=== PATIENT | female | born 1970 ===

== ENCOUNTER 2017-06-08 10:00 | Emergency (ER) | payer SELFPAY ==
[2017-06-08 10:06] VITALS: BP 119/87; PULSE 76; RESP 18; TEMP 98; O2SAT 97
--- NOTE | 2017-06-08 10:28 | C.PDOC ---
History Of Present Illness 47-year-old female, presents to the emergency department with complaints of cough and sore throat for the past few days. She denies fevers, nausea/ vomiting. Secondary complaint is non-traumatic pain to her left foot for the past month. Patient denies numbness/weakness, or any other associated symptoms. No other complaints at this time. Time Seen by Provider: 06/08/17 10:09 Chief Complaint (Nursing): ENT Problem History Per: Patient History/Exam Limitations: no limitations Onset/Duration Of Symptoms: Days Current Symptoms Are (Timing): Still Present Past Medical History Reviewed: Historical Data, Nursing Documentation, Vital Signs Vital Signs: Last Vital Signs Temp 98 F 06/08/17 10:02 Pulse 76 06/08/17 10:02 Resp 18 06/08/17 10:02 BP 119/87 06/08/17 10:02 Pulse Ox 97 06/08/17 11:34 Family History: States: No Known Family Hx - Social History Hx Alcohol Use: No Hx Substance Use: No - Immunization History Hx Tetanus Toxoid Vaccination: No Hx Influenza Vaccination: No Hx Pneumococcal Vaccination: No Review Of Systems Except As Marked, All Systems Reviewed And Found Negative. Constitutional: Negative for: Fever ENT: Positive for: Throat Pain Respiratory: Positive for: Cough. Negative for: Shortness of Breath Gastrointestinal: Negative for: Nausea, Vomiting Musculoskeletal: Positive for: Foot Pain Skin: Negative for: Rash Neurological: Negative for: Weakness, Numbness, Headache, Dizziness Physical Exam - Physical Exam Appears: Non-toxic, No Acute Distress Skin: Warm, Dry, No Rash Head: Atraumatic, Normacephalic Eye(s): bilateral: Normal Inspection, PERRL Nose: Normal Oral Mucosa: Moist Throat: Erythema, No Exudate (no tonsillar swell) Neck: Normal ROM Chest: Symmetrical Cardiovascular: Rhythm Regular, No Murmur Respiratory: Normal Breath Sounds, No Accessory Muscle Use Extremity: Tenderness, No Deformity, Other (L foot: mild tenderness to heel. No erythema, skin changes, warmth) Neurological/Psych: Oriented x3, Normal Speech ED Course And Treatment O2 Sat by Pulse Oximetry: 97 (on RA) Pulse Ox Interpretation: Normal Progress Note: XR L foot ordered and reviewed. Patient treated with PO Naproxen for foot pain and Tessalon for cough/sore throat. Disposition Counseled Patient/Family Regarding: Studies Performed, Diagnosis, Need For Followup, Rx Given - Disposition Referrals: [facility] [Outside] Podiatry Clinic [Outside] Disposition: HOME/ ROUTINE Disposition Time: 11:30 Condition: STABLE Additional Instructions: SEGUIMIENTO CON SKINNER MDICO EN 1-2 [place], Y CON PODIATRA DENTRO DE 1 SEMANA USE MEDICAMENTOS SEGN SEA NECESARIO REGRESE AL BUZZ DE EMERGENCIA SI LOS SNTOMAS EMPEORAN Prescriptions: Benzonatate [Tessalon Perles] 100 mg PO BID PRN #15 sgl PRN Reason: Cough Naproxen 375 mg PO BID PRN #20 tablet PRN Reason: pain Phenol/Glycerin [Chloraseptic Max Callahan] 1 spray MM Q6 PRN #1 spray PRN Reason: THROAT PAIN Instructions: Upper Respiratory Infection (ED), Heel Spur (ED) Forms: [employer] (Togolese) Print Language: SYRIAC - POA Present On Arrival: None - Clinical Impression Clinical Impression: Viral disease, Upper respiratory infection, Heel spur - Scribe Statement The provider has reviewed the documentation as recorded by the Scribe (Tremaine Caruso) All medical record entries made by the Scribe were at my direction and personally dictated by me. I have reviewed the chart and agree that the record accurately reflects my personal performance of the history, physical exam, medical decision making, and the department course for this patient. I have also personally directed, reviewed, and agree with the discharge instructions and disposition.
[2017-06-08] MEDS ORDERED: Naproxen 550 mg Tab PO STA (10:38)
[2017-06-08] MEDS ORDERED: Naproxen 550 mg Tab PO ONE (10:42)
--- NOTE | 2017-06-08 12:51 | RAD ---
PROCEDURE: Left Foot Radiographs. HISTORY: left heel pain COMPARISON: None. FINDINGS: BONES: No acute fracture. Plantar and Achilles Tendon insertion calcaneal spurs. JOINTS: Normal. SOFT TISSUES: Normal. OTHER FINDINGS: None. IMPRESSION: No acute findings related to/accounting for the clinical presentation.
== END 2017-06-08 11:43 | disposition home or self-care (01) ==
LOC: C.ER 10:00
DX: J06.9 Acute upper respiratory infection, unspecified (principal); B34.9 Viral infection, unspecified; M77.32 Calcaneal spur, left foot